=== PATIENT | female | born 1950 | race Hispanic/Latino ===

== ENCOUNTER → 2019-12-24 | Outpatient (CLI) | payer OTHER ==
--- NOTE | 2019-12-24 15:54 | Diagnostic Imaging Report ---
TECHNIQUE: MRI of the abdomen WITHOUT intravenous contrast. INDICATION: 68-year-old woman with renal cyst and chronic kidney disease. COMPARISON: None. FINDINGS: ABSENCE OF INTRAVENOUS CONTRAST DECREASES SENSITIVITY FOR DETECTION OF FOCAL LESIONS AND VASCULAR PATHOLOGY. LOWER THORAX: Unremarkable. LIVER: No hepatic signal abnormality. No focal hepatic lesions. BILIARY: Gallbladder is unremarkable. No biliary ductal dilatation or filling defect. SPLEEN: No splenomegaly. PANCREAS: No focal masses or ductal dilatation. ADRENALS: No adrenal nodules. KIDNEYS/URETERS: No hydronephrosis or mass in the right kidney. 4.6 x 2.4 x 3.2 cm lobulated cyst in the right lower pole appears to contain a few thin internal septations. Additional simple cysts in the right kidney measure up to 1.6 x 1 x 1.4 cm. No hydronephrosis in the left kidney. Apparent 1.7 x 2.4 x 1.6 cm T1/T2 isointense structure in the left upper pole. 1.3 x 1.3 x 2.2 cm cyst in the left upper pole contains a single thin internal septation. Additional subcentimeter simple cysts in the left kidney. PERITONEUM/RETROPERITONEUM: No free fluid. LYMPH NODES: No lymphadenopathy. VESSELS: Unremarkable. GI TRACT: No distention or wall thickening. BONES AND SOFT TISSUES: Unremarkable. IMPRESSION: Apparent 2.4 cm structure in the upper pole of the left kidney probably represents lobulated normal renal cortex, however mass or debris-containing cyst cannot be excluded on this noncontrast MRI. 4.6 cm mildly complicated right renal cyst. Additional benign-appearing cysts in both kidneys. RECOMMENDATION: Follow-up abdomen MRI may be obtained in 3-6 months for reassessment of the above findings. Signed by: Micki Olsen MD on 12/24/2019 3:50 PM
== END ==
LOC: EDBD 09:47 → MRI 09:47
PROVIDERS: ATTEND Internal Medicine Nephrology
DX: N18.4 Chronic kidney disease, stage 4 (severe) (principal); N28.1 Cyst of kidney, acquired
CPT/HCPCS: 74181

== ENCOUNTER → 2020-03-18 | Outpatient (CLI) | payer OTHER, MEDICARE ==
--- NOTE | 2020-03-18 15:55 | Diagnostic Imaging Report ---
MRI of the abdomen, without contrast, 03/18/2020. History: Renal cyst. Comparison: 12/24/2019. Technique: Multiplanar, multisequence imaging of the abdomen was performed without contrast. Discussion: Multiple oval cortical circumscribed T1 hypointense T2 hyperintense lesions are present in both kidneys, the largest in the right lower pole measuring 3.3 x 2.8 x 4.3 cm and containing thin septations. The 2.4 cm lobulated appearance of the left renal upper pole is also without change. A 2.2 cm left renal upper pole cyst is again noted. The liver, gallbladder, spleen, pancreas, and adrenal glands are normal in appearance. The visualized loops of bowel and osseous structures are normal. There is no evidence of adenopathy. There is no evidence of ascites. IMPRESSION: Bilateral renal cysts, including a complicated right lower pole cyst, without change. Left renal lobulated cortex is also unchanged. Signed by: Tremaine Kim on 03/18/2020 3:51 PM
== END ==
LOC: MRI 13:29
PROVIDERS: ATTEND Urology
DX: D41.02 Neoplasm of uncertain behavior of left kidney (principal); N18.9 Chronic kidney disease, unspecified
CPT/HCPCS: 74181